=== PATIENT | female | born 1965 | race Caucasian/White ===

== ENCOUNTER → 2020-05-19 | Outpatient (CLI) | payer BC, OTHER ==
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
== END | disposition home or self-care (01) ==
LOC: RADMRIMAIN 19:13
PROVIDERS: ATTEND Orthopaedic Surgery
DX: M19.011 Primary osteoarthritis, right shoulder (principal); M75.81 Other shoulder lesions, right shoulder

== ENCOUNTER → 2020-07-05 | Outpatient (CLI) | payer BC, OTHER ==
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
== END | disposition home or self-care (01) ==
LOC: RADMRIMAIN 18:01
PROVIDERS: ATTEND Orthopaedic Surgery
DX: M50.222 Other cervical disc displacement at C5-C6 level (principal)
CPT/HCPCS: 72141; 71552; A9585

== ENCOUNTER 2020-08-15 06:26 | Day surgery (SDC) | payer BC, OTHER ==
[2020-08-11 16:02] VITALS: BMI 34.5
[2020-08-15 07:20] VITALS: TEMP 97.9
[2020-08-15] MEDS ORDERED: IOPAMIDOL M200 10 ML VIAL ONE (07:25)
[2020-08-15] MEDS ORDERED: DEXAMETHASONE SOD PHOSPHATE 10 MG/ML 1 ML VIAL ONE (07:25)
[2020-08-15] MEDS ORDERED: LIDOCAINE 1% INJ 10MG/ML (20 ML MDV) ONE (07:25)
[2020-08-15] MEDS ORDERED: SODIUM CHLORIDE 0.9% (PF) 10 ML VIAL ONE (07:25)
--- NOTE | 2020-08-15 07:40 | P.PCN ---
Date of Procedure: 08/15/20 Description of Procedure: Diagnosis: Cervical radiculopathy Cervical degenerative disc disease POSTOPERATIVE DIAGNOSIS: Diagnoses: Cervical radiculopathy Cervical degenerative disc disease PROCEDURE Cervical Epidural steroid injection under fluoroscopic guidance at the C7-T1 interspace using right paramedian approach Cervical epidurogram ANESTHESIA: Local with 1% lidocaine 3 ml and Fluoroscopy was used for the procedure and images were saved in the radiology portion of the chart. EBL: Minimal PROCEDURE INDICATION: The patient presents with cervical radicular symptoms unresponsive to conservative treatment. This is the first cervical epidural steroid injection. PROCEDURE DESCRIPTION / TECHNIQUE: The patient was seen and identified in the preoperative area. Risks, benefits, complications including but not limited to infections ,bleeding ,allergic reaction to the medications ,nerve damage and incomplete pain relief, and alternatives were discussed with the patient. The patient agreed to proceed with the procedure and signed the consent. IV was started, and vital signs were stable. Patient was taken to the OR and time out was completed. The patient was placed in the prone position on procedure table and a pillow was placed under the chest area. The cervical area was prepped and draped in the usual sterile fashion. Conscious sedation was used during the procedure to decrease patients anxiety. Vital signs was monitored during the entire procedure. Using anterior-posterior fluoroscopy, the C7-T1 interlaminar space was identified and the skin over this site was marked and then infiltrated with 1% lidocaine subcutaneously. Subsequently, a 20-gauge Tuohy epidural needle was inserted and advanced toward the epidural space using the loss of resistance technique and guided by AP and 50 oblique fluoroscopy. The correct needle position in the epidural space was verified. After negative aspiration for blood and CSF and in the absence of paresthesias, Isovue 200 2 mL's was injected under live fluoroscopy with good epidural spread. After negative aspiration, a 4 ml mixture containing 10 mg of dexamethasone, 3 mL of preservative free normal saline and 1 mL of 1% lidocaine was injected. Needle was withdrawn intact, skin was cleansed, and bandages were applied. COMPLICATIONS: None DISPOSITION / PLANS: The patient was placed in a supine position and transferred to the recovery area in a stable condition for observation. There was no evidence of lower extremity motor or sensory deficit after the procedure. Patient was discharged from the recovery room after meeting discharge criteria. Home discharge instructions were given to the patient by the staff. The patient will be scheduled a repeat procedure in 2-4 weeks.
[2020-08-15 07:48] VITALS: BP 124/77; PULSE 71; RESP 16
--- NOTE | 2020-08-15 11:35 | FL ---
Fluoroscopy INDICATION: Pain FINDINGS: Fluoroscopy time: 7 seconds. Images obtained: 2. IMPRESSIONS: 1. Documentation of fluoroscopy.
== END 2020-08-15 08:16 | disposition home or self-care (01) ==
LOC: ORPAIN 06:26
PROVIDERS: ATTEND Anesthesiology
DX: M50.10 Cervical disc disorder with radiculopathy, unspecified cervical region (principal); Z78.0 Asymptomatic menopausal state
CPT/HCPCS: 62321; J1100; Q9966

== ENCOUNTER 2020-09-05 11:44 | Day surgery (SDC) | payer BC, OTHER ==
[2020-09-01 17:23] VITALS: BMI 32.9
[~2020-09-05 11:44] MED LIST: LACTATED RINGERS 1,000 ML IV SCH
[2020-09-05 12:29] VITALS: TEMP 98.6
[2020-09-05] MEDS ORDERED: IOPAMIDOL M200 10 ML VIAL ONE (12:43)
[2020-09-05] MEDS ORDERED: DEXAMETHASONE SOD PHOSPHATE 10 MG/ML 1 ML VIAL ONE (12:43)
--- NOTE | 2020-09-05 12:58 | P.PCN ---
Date of Procedure: 09/05/20 Surgeon: Violet Tran Pathology: none sent Condition: stable Disposition: PACU Description of Procedure: PROCEDURE 1. Cervical epidural steroid injection under fluoroscopic guidance, C7-T1 right paramedian approach. 2. Cervical epidurogram. : PREOPERATIVE DIAGNOSIS: Cervical radiculopathy, cervical spondylosis without myelopathy POSTOPERATIVE DIAGNOSIS: : Same as above ANESTHESIA: Local anesthesia only with 1% lidocaine EBL 0 PROCEDURE INDICATION: The patient with neck pain and radiculopathy unresponsive to conservative treatment consents for procedure. PROCEDURE DESCRIPTION / TECHNIQUE: The patient was seen and identified in the preoperative area. Risks, benefits, complications, including but not limited to infections ,bleeding , allergic reactions to the medications ,and not complete pain relief, and alternatives were discussed with the patient, the patient agreed to proceed with the procedure and signed the consent. Patient was taken to the OR and time out was completed. The patient was placed in the prone position on the procedure table. A pillow was placed under the patients chest to increase the flexion of the cervical spine . The cervical area was prepped and draped in the usual sterile fashion. Vital signs were closely monitored during the procedure. Conscious sedation was used during the procedure to decrease patients anxiety. Using anterior-posterior fluoroscopy, the C7-T1 interlaminar space was identified and the skin over this site was marked and then infiltrated with 1% lidocaine subcutaneously. Subsequently, a 20-gauge 3-1/2-inch Tuohy epidural needle was inserted and advanced toward the epidural space by means of loss of resistance to air technique and guided by AP and lateral fluoroscopy. The needle tip contacted the lamina of T1 vertebra first, then it was walked off bone and into the epidural space using the loss of to air and fluoroscopic guidance to identify the epidural space. The correct needle position in the epidural space was verified with the injection of 1 mL of the water soluble contrast dye Isovue and observing an excellent epidurogram with the epidural spread of the dye, after negative aspiration for blood and CSF and in the absence of paresthesias. Again after negative aspiration, a 2 ml mixture containing 10 mg of Decadron and 1 ml of preservative free Normal Saline solution was injected and a washout of epidurogram was seen. Needle was withdrawn intact, skin was cleansed, and bandages were applied. A copy of the needle placement picture was saved to the fluoroscopy machine.
[2020-09-05 13:04] VITALS: PULSE 67; RESP 18
[2020-09-05 13:21] VITALS: BP 138/78
--- NOTE | 2020-09-05 16:01 | FL ---
Fluoroscopy INDICATION: Pain FINDINGS: Fluoroscopy time: 6 seconds. Images obtained: 1. IMPRESSIONS: 1. Documentation of fluoroscopy.
== END 2020-09-05 13:34 | disposition home or self-care (01) ==
LOC: ORPAIN 11:44
PROVIDERS: ATTEND Anesthesiology
DX: M47.22 Other spondylosis with radiculopathy, cervical region (principal); E66.9 Obesity, unspecified; Z68.34 Body mass index [BMI] 34.0-34.9, adult; Z78.0 Asymptomatic menopausal state
CPT/HCPCS: 62321; J1100; Q9966

== ENCOUNTER → 2024-07-26 | Outpatient (CLI) | payer OTHER ==
--- NOTE | 2024-07-27 22:30 | MR ---
EXAMINATION TYPE: MR shoulder RT wo con DATE OF EXAM: 07/26/2024 COMPARISON: MRI right shoulder May 19, 2020. Outside right shoulder x-ray July 16, 2024 HISTORY: Right shoulder pain, possible RCT TECHNIQUE: Multiplanar, multisequence imaging of the right shoulder is performed without contrast. FINDINGS: Rotator Cuff: The infraspinatus tendon is intact. There is new Focal prominent increased signal dista l supraspinatus tendon and articular surface. Intact subscapularis tendon. Rotator cuff muscle bulk i s preserved. Acromioclavicular Joint: Moderate to severe narrowing remains present with [id number] spurring. Mild capsular hypertrophy is noted. Type II downsloping acromion however is redemonstrated. Glenohumeral Joint: Small to moderate-sized joint effusion is similar to prior. No significant spurri ng. Some narrowing is again seen. Labrum: The labrum appears grossly intact given limitation of non-arthrogram study. Biceps Tendon: The long head of biceps is in normal location within bicipital groove. Intracapsular p ortion not well seen but diffuse increased signal is felt present. Bone marrow signal: Tiny subchondral cystic change in the lateral aspect of the humeral head remains present. Other: No additional significant abnormality is appreciated. IMPRESSION: 1. More prominent tendinosis/partial tearing of the distal supraspinatus tendon. 2. Some tendinosis of the intracapsular portion of the long head of biceps tendon. 3. Moderate degenerative changes are present as detailed above similar to prior study. Type II downsl oping acromion is redemonstrated. [facility], , 07/27/2024 10:28 PM
== END | disposition home or self-care (01) ==
LOC: RADMRIMAIN 18:57
PROVIDERS: ATTEND Orthopaedic Surgery

== ENCOUNTER 2024-11-23 10:48 | Day surgery (SDC) | payer OTHER ==
--- NOTE | 2024-11-22 08:10 | P.HPOR ---
History of Present Illness H&P Date: 11/22/24 Chief Complaint: Right shoulder pain and stiffness The patient is a 59-year-old female who presents with right shoulder pain and stiffness that began in February of last year. She has tried therapy in addition to injections and medications with only temporary partial relief. She notes pain with attempted overhead use and at night. Review of Systems Per HPI Past Medical History Past Medical History: No Reported History Additional Past Medical History / Comment(s): right frozen shoulder, torn rotator cuff History of Any Multi-Drug Resistant Organisms: None Reported Past Surgical History: Section, Cholecystectomy Additional Past Surgical History / Comment(s): Section X2. oral surg Past Anesthesia/Blood Transfusion Reactions: No Reported Reaction Smoking Status: Current every day smoker - Past Family History Mother Family Medical History: No Reported History Medications and Allergies Home Medications Medication Instructions Recorded Confirmed Type Ibuprofen [Motrin Ib] 400 - 600 mg PO Q6H PRN 08/11/20 11/18/24 History Allergies Allergy/AdvReac Type Severity Reaction Status Date / Time No Known Allergies Allergy Verified 11/18/24 10:12 Physical Examination - Shoulder right Tenderness with palpation: anterior, bicipital groove Pain: with abduction, with forward flexion ROM: forward flexion: 120 degrees ROM: internal rotation: 0 ROM: external rotation: 30 degrees Crepitus with motion: Yes Strength: abduction: 5/5 Strength: forward flexion: 5/5 Strength: external rotation: 5/5 Tests: internal impingement tests: positive, external impingment tests: positive Results The patient is a well-developed well-nourished female approximately 5 foot 2, 176 pounds of endomorphic habitus. HEENT exam is nonfocal, neck is supple. She is tender about the right anterior glenohumeral joint. Passively and actively forward elevation on the right is 130 degrees. Impingement test, Neer test are positive. Her distal neurovascular exam otherwise appears intact in the right upper extremity. Assessment and Plan Assessment: Right shoulder adhesive capsulitis Plan: I talked to the patient at length regarding her condition along with treatment options. At this point she remains quite symptomatic despite extensive conservative measures. After a thorough discussion she opts to proceed with manipulation under anesthesia. Risks and benefits were discussed at length in layman's terms.
[2024-11-23] MEDS: LIDOCAINE 1% (10MG/ML) FOR IV START INTRADERMA STA (11:35)
[2024-11-23] MEDS: LACTATED RINGERS 1,000 ML IV SCH (11:35)
[2024-11-23] MEDS: IV FLUID CONTINUATION 1,000 ML IV ONE ×2 (11:35→14:10)
[2024-11-23 11:41] VITALS: TEMP 97.7
[2024-11-23] MEDS: ONDANSETRON 4 MG/2 ML VIAL IVP ONE (11:43)
[2024-11-23] MEDS: DEXAMETHASONE SOD PHOSPHATE 4 MG/ML 1 ML VIAL IV ONE (11:43)
[2024-11-23] MEDS ORDERED: LIDOCAINE 1% INJ 10MG/ML (20 ML MDV) ONE (12:13)
[2024-11-23] MEDS ORDERED: KETOROLAC 15 MG/ML 1 ML VIAL ONE (12:13)
[2024-11-23] MEDS ORDERED: PROPOFOL 10 MG/ML 20 ML VIAL IV ONE (12:13)
--- NOTE | 2024-11-23 12:18 | P.OP ---
Date of Procedure: 11/23/24 Preoperative Diagnosis: Right shoulder adhesive capsulitis Postoperative Diagnosis: Same Procedure(s) Performed: Manipulation under anesthesia right shoulder Anesthesia: MAC Surgeon: Td Cortez Estimated Blood Loss (ml): 0 Pathology: none sent Condition: stable Disposition: PACU Indications for Procedure: The patient is a 59-year-old female who presents with progressive right shoulder pain and stiffness despite adequate rehabilitation. Clinically she has no evidence of adhesive capsulitis. A discussion of the risks and benefits of the ablation under anesthesia was made with the patient. She opted to proceed. Specific risks of the procedure to include fracture, tendon rupture, incomplete resolution of symptoms, possible recurrence and need for subsequent procedures was discussed. Informed consent was obtained. Operative Findings: As below Description of Procedure: The patient was brought to the recovery room, and after induction of IV sedation the right shoulder was gently manipulated. First with the arm at the side I obtain full external rotation. Moderate adhesions were encountered. I then obtain full forward elevation. Again moderate adhesions were encountered. I felt I had adequate release at this point. She was then monitored until fully awake. There was no blood loss. No complications were incurred.
[2024-11-23] MEDS: HYDROmorphone 0.5 MG/0.5 ML SYRINGE IVP PRN (12:30)
[2024-11-23 14:22] VITALS: RESP 14
[2024-11-23 14:43] VITALS: BP 128/80; PULSE 72
== END 2024-11-23 15:12 | disposition home or self-care (01) ==
LOC: OR 10:48
PROVIDERS: ATTEND Orthopaedic Surgery
DX: M75.01 Adhesive capsulitis of right shoulder (principal); F17.200 Nicotine dependence, unspecified, uncomplicated; Z90.49 Acquired absence of other specified parts of digestive tract; Z79.1 Long term (current) use of non-steroidal anti-inflammatories (NSAID)
CPT/HCPCS: 23700; J1100; J2405; J1171